=== PATIENT | female | born 1960 | race Caucasian/White ===

== ENCOUNTER → 2018-06-20 | Outpatient (CLI) | payer BC ==
[2015-04-08 01:35] VITALS: BP 145/78
[~2018-06-20] MED LIST: ACET500T68 PO; CYCL-331 PO; DIPH25CA58 PO; FLUT1DIS IH; IOHEXOL 300 MG/ML 75 ML VIAL. IV ONE; MELA3TAB19 PO; MOXI3DRO2 LEFTEYE; MOXI3DRO2 RIGHTEYE; NAPR500T8 PO; NEPA1.7D LEFTEYE; NEPA1.7D RIGHTEYE; PRED5DRO16 LEFTEYE; PRED5DRO16 RIGHTEYE; RANI150T2 PO; [UNRECOGNIZED DRUG - OTHER] PO
--- NOTE | 2018-06-20 12:24 | RAD ---
CT of the head without contrast, 06/20/2018: HISTORY: Headache The ventricles are within normal limits in size. There is no shift of the midline structures. There is no evidence of acute intracranial hemorrhage or mass effect. There is partial opacification of the left frontal sinus. There is mild mucosal thickening in the ethmoid sinuses, left greater than right. IMPRESSION: 1. No acute intracranial abnormality. 2. Paranasal sinusitis. RS Compliance Statement: One or more of the following individualized dose reduction techniques were utilized for this examination: 1. Automated exposure control 2. Adjustment of the mA and/or kV according to patient size 3. Use of iterative reconstruction technique Electronically signed by: Malvin Rahman MD (06/20/2018 12:20 PM) [facility]
== END | disposition home or self-care (01) ==
LOC: CT 11:42
PROVIDERS: ATTEND Nurse Practitioner Family
DX: J32.9 Chronic sinusitis, unspecified (principal); H53.8 Other visual disturbances
CPT/HCPCS: 70450

== ENCOUNTER 2021-03-30 21:19 | Emergency (ER) | payer BC, OTHER ==
[~2021-03-30] VITALS: Ht 170.2 cm; Wt 90.9 kg
[~2021-03-30 21:19] MED LIST changes: -IOHEXOL 300 MG/ML 75 ML VIAL. IV ONE; -MELA3TAB19 PO; +MELA3TAB30 PO; +MOXI3DRO18 LEFTEYE; +MOXI3DRO18 RIGHTEYE; -MOXI3DRO2 LEFTEYE; -MOXI3DRO2 RIGHTEYE
[2021-03-30] MEDS ORDERED: DEXAMETHASONE 4 MG TABLET PO ONE (22:30)
[2021-03-30] MEDS ORDERED: IPRATRPIUM/ALBUTEROL 0.5/2.5MG 3 ML NEBU. NEB ONE (22:30)
--- NOTE | 2021-03-30 22:52 | RAD ---
XR CHEST 1V 03/30/2021 10:29 PM INDICATION: Shortness of air, Covid patient under investigation COMPARISON: 10/09/2014 TECHNIQUE: Portable frontal view of the chest is provided. FINDINGS: The cardiomediastinal silhouette is within normal limits. Lungs are clear. There are no significant pleural effusions. There is no pulmonary vascular congestion. No pneumothora x. No suspicious osseous abnormality. IMPRESSION: There is no acute cardiopulmonary process. Electronically signed by: India Bray MD (03/30/2021 10:50 PM) [facility]
[2021-03-30] MEDS ORDERED: BENZ100C PO (23:12)
[2021-03-30] MEDS ORDERED: LEVO750T5 PO (23:12)
[2021-03-30] MEDS ORDERED: PRED20TA PO (23:12)
[2021-03-30] MEDS ORDERED: ALBU2.5V8 IH (23:12)
--- NOTE | 2021-03-30 23:13 | PHYS DOC ---
Past History Past Medical History: COPD, Depression, GERD, Other Past Surgical History: Appendectomy, Hysterectomy, Tubal ligation, Other Alcohol Use: Occasionally Drug Use: None General Adult EDM: Chief Complaint: SHORTNESS OF BREATH HPI: HPI: Patient is a [age] year old [sex] who presents with [] Review of Systems: Review of Systems: Constitutional: Denies fever or chills Eyes: Denies change in visual acuity HENT: Denies nasal congestion or sore throat Respiratory: Denies cough or shortness of breath Cardiovascular: Denies chest pain or edema GI: Denies abdominal pain, nausea, vomiting, bloody stools or diarrhea : Denies dysuria Musculoskeletal: Denies back pain or joint pain Integument: Denies rash Neurologic: Denies headache, focal weakness or sensory changes Endocrine: Denies polyuria or polydipsia Lymphatic: Denies swollen glands Psychiatric: Denies depression or anxiety Current Medications: Current Meds: Current Medications Medications (Trade) Dose Ordered Sig/Toby Start Time Stop Time Status Last Admin Dose Admin Albuterol/ Ipratropium (Duoneb) 3 ml 1X ONCE 03/30/21 22:30 03/30/21 22:31 DC 03/30/21 22:23 3 ML Dexamethasone (Decadron) 10 mg 1X ONCE 03/30/21 22:30 03/30/21 22:31 DC 03/30/21 23:01 10 MG Allergies: Allergies: Allergies Coded Allergies Type Severity Reaction Last Updated Verified silver sulfadiazine Allergy Intermediate SKIN SLOUGH 11/11/14 Yes Sulfa (Sulfonamide Antibiotics) Allergy Mild RASH 11/11/14 Yes Uncoded Allergies Type Severity Reaction Last Updated Verified metal Allergy Severe Rash 04/08/15 Physical Exam: PE: Constitutional: Well developed, well nourished, no acute distress, non-toxic appearance. [] HENT: Normocephalic, atraumatic, bilateral external ears normal, oropharynx moist, no oral exudates, nose normal. [] Eyes: PERRLA, EOMI, conjunctiva normal, no discharge. [] Neck: Normal range of motion, no tenderness, supple, no stridor. [] Cardiovascular:Heart rate regular rhythm, no murmur [] Lungs & Thorax: Bilateral breath sounds clear to auscultation [] Abdomen: Bowel sounds normal, soft, no tenderness, no masses, no pulsatile masses. [] Skin: Warm, dry, no erythema, no rash. [] Back: No tenderness, no CVA tenderness. [] Extremities: No tenderness, no cyanosis, no clubbing, ROM intact, no edema. [] Neurologic: Alert and oriented X 3, normal motor function, normal sensory function, no focal deficits noted. [] Psychologic: Affect normal, judgement normal, mood normal. [] Current Patient Data: Vital Signs: Vital Signs Date Time Temp Pulse Resp B/P (MAP) Pulse Ox O2 Delivery O2 Flow Rate FiO2 03/30/21 22:23 94 Room Air EKG: EKG: [] Radiology/Procedures: Radiology/Procedures: PROCEDURE: CHEST AP ONLY XR CHEST 1V 03/30/2021 10:29 PM INDICATION: Shortness of air, Covid patient under investigation COMPARISON: 10/09/2014 TECHNIQUE: Portable frontal view of the chest is provided. FINDINGS: The cardiomediastinal silhouette is within normal limits. Lungs are clear. There are no significant pleural effusions. There is no pulmonary vascular congestion. No pneumothorax. No suspicious osseous abnormality. IMPRESSION: There is no acute cardiopulmonary process. Electronically signed by: India Bray MD (03/30/2021 10:50 PM) [facility] Heart Score: Risk Factors: Risk Factors: DM, Current or recent (<one month) smoker, HTN, HLP, family history of CAD, obesity. Risk Scores: Score 0 - 3: 2.5% MACE over next 6 weeks - Discharge Home Score 4 - 6: 20.3% MACE over next 6 weeks - Admit for Clinical Observation Score 7 - 10: 72.7% MACE over next 6 weeks - Early Invasive Strategies Course & Med Decision Making: Course & Med Decision Making Pertinent Labs and Imaging studies reviewed. (See chart for details) [] Dragon Disclaimer: Dragon Disclaimer: This electronic medical record was generated, in whole or in part, using a voice recognition dictation system. Departure Departure: Impression: Primary Impression: Bronchitis Additional Impression: Suspected 2019 novel coronavirus infection Disposition: HOME / SELF CARE / HOMELESS Condition: STABLE Referrals: DOUGLAS AGUILAR MD (PCP) Patient Instructions: Acute Bronchitis, [id number], Smoking Cessation, Tips For Success Additional Instructions: You have been tested for or diagnosed with COVID-19. It is an infection caused by a new type of coronavirus. COVID-19 will cause cold-like or mild flu symptoms in most. It can cause more severe symptoms like problems breathing in some. There is no treatment for COVID-19. The body will clear the infection over time. Self-care will help to ease discomfort. Steps to Take: Self-Care Rest as needed. Healthy habits may help you feel better. Steps include: Choose healthy foods including fruits and vegetables. Drink water throughout the day. Get plenty of sleep each night. If you smoke, try to quit. It may ease breathing. Avoid alcohol. Keep Others Healthy The virus can spread to others. Droplets are released every time you sneeze or cough. The droplets can get into the mouth, nose, or eyes of people near you and lead to infection. To lower the chances of spreading COVID-19 to others: Stay at home until your doctor has said it is safe to leave. If you tested positive this will mean staying isolated until both of the following are true: At least 7 days have passed since the start of illness. You are free of fever for at least 72 hours without the use of medicine. During this time: - Avoid public areas, events, or transportation. Do not return to work or school until your doctor has said it is safe to do so. - Call ahead if you need to go to a medical center. Let them know you may have COVID-19. It will help them guide you where to go. They may also ask you to wear a facemask when you come to the office. - If you call for emergency medical services, let them know you may have COVID- 19. While at home: - Try to avoid close contact with others. Stay about 6 feet away. - If possible, spend most of your time in a separate room from others. - Use a face mask if you will be in close contact with others such as sharing a room or vehicle. - Have someone wipe down common surfaces in the home. Use household getterer every day on areas like doorknobs, counters, or sinks. - Cough or sneeze into a tissue. Throw the tissue away right after use. If a tissue is not available, cough or sneeze into your elbow. - Wash your hands often. Wash them after sneezing or coughing. Use soap and water and wash for at least 20 seconds. Alcohol based hand glass cleaner can be used if soap and water is not available. - Do not prepare food for others. Avoid sharing personal items like forks, spoons, or toothbrushes. - Avoid close contact with pets while you are sick. There is no evidence of the virus passing to pets. This is a safety step until more is known about this virus. Isolation can be frustrating. Social interaction can help. Keep in touch with friends and family through phone and tech options. You can still interact with others in your home, just keep a safe distance of about 6 feet. Follow-up: Your doctors office will check in with you to see if there are any changes in your health. You may be asked to keep track of symptoms to share with them. They will also let you know when you are clear to be in public again. Problems to Look Out For: Contact your doctor if your recovery is not going as you expect. Get emergency care if you have problems such as: - Trouble breathing - Nonstop chest pain or pressure - Changes in awareness, confusion, or problems waking - Lips or face have bluish color - Worsening of symptoms If you think you have an emergency, call for emergency medical services right away. As taken from [facility] Benzonatate (TESSALON PERLE) 100 Mg Capsule 1 CAP PO TID PRN for COUGH, #21 CAP Prov: YANET DELA CRUZ DO 03/30/21 Prednisone (PREDNISONE) 20 Mg Tablet 2 TAB PO DAILY for Bronchitis, #8 TAB Start this prescription tomorrow, Monday03/31/21 Prov: YANET DELA CRUZ DO 03/30/21 Albuterol Sulfate (PROAIR HFA INHALER) 8.5 Gm Hfa.aer.ad 2 PUFF IH PRN Q4-6HRS PRN for wheezing for 21 Days, #1 INHALER 0 Refills Prov: YANET DELA CRUZ DO 03/30/21 Levofloxacin (LEVOFLOXACIN) 750 Mg Tablet 1 TAB PO DAILY for Bronchitis, #7 TAB Prov: YANET DELA CRUZ DO 03/30/21 YANET DELA CRUZ DO Mar 30, 2021 23:13
[2021-03-30 23:15] VITALS: BP 124/69
[2021-03-30] MEDS ORDERED: levoFLOXacin 500 MG TABLET PO ONE (23:15)
== END 2021-03-30 23:48 | disposition home or self-care (01) ==
LOC: ER 21:19
DX: J44.9 Chronic obstructive pulmonary disease, unspecified (principal); Z20.822 Contact with and (suspected) exposure to COVID-19; K21.9 Gastro-esophageal reflux disease without esophagitis; Z88.8 Allergy status to other drugs, medicaments and biological substances; Z88.2 Allergy status to sulfonamides
CPT/HCPCS: 71045; 94640; 99284; C9803; J8540; U0003